=== PATIENT | male | born 2000 ===

== ENCOUNTER 2022-11-25 22:51 | Emergency (ER) | payer BC ==
[2022-11-25] MEDS ORDERED: Acetaminophen/HYDROcodone 325-10 MG Tab PO ONE (23:20)
[2022-11-26] MEDS ORDERED: Ketorolac 30 MG/ML SDV IM ONE (00:03)
[2022-11-26] MEDS ORDERED: Take Home: Acetaminophen/HYDROcodone 325-10 MG, 5 Tab Pack PO ONE (00:04)
[2022-11-26] MEDS ORDERED: Take Home: Naproxen 500 MG Tab, 4 Tab Pack PO ONE (00:04)
== END 2022-11-26 00:48 | disposition home or self-care (01) ==
LOC: VM.ED 22:51
DX: S76.111A Strain of right quadriceps muscle, fascia and tendon, initial encounter (principal); X50.1XXA Overexertion from prolonged static or awkward postures, initial encounter; Y93.22 Activity, ice hockey
CPT/HCPCS: 73552; 96372; 99283; A9270; J1885